=== PATIENT | female | born 1940 | race Caucasian/White ===

== ENCOUNTER → 2017-04-05 | Outpatient (CLI) | payer OTHER, BC ==
[~2017-04-05] MED LIST: ALEVE220 M1 PO; ALEVE220 MG PO; ATIVAN0.5 MG PO; CALCIUM 600 +1 EAC1 PO; CLARITIN10 MG PO; COLACE100 MG PO; CORGARD20 MG PO; COUMADIN 2 MG TA2 M1 PO; FERRO-TIME325 MG PO; HYDROCODON-ACE1 EAC5 PO; IMITREX 25 MG T25 M1 PO; JANTOVEN2 MG PO; NORCO 10-325 T1 EACH PO; PERCOCET 5-3251 EACH PO; REQUIP 0.25 M0.25 MG PO; SENNA-S TABLET1 EACH PO; TAMSULOSIN HCL0.4 MG PO; VISTARIL 25 MG25 M1 PO
== END ==
LOC: MRI 09:16
DX: M19.012 Primary osteoarthritis, left shoulder (principal); M65.812 Other synovitis and tenosynovitis, left shoulder

== ENCOUNTER → 2017-05-04 | Outpatient (CLI) | payer OTHER, BC | LOC: RAD 10:26 | DX: Z01.818 Encounter for other preprocedural examination (principal); I10 Essential (primary) hypertension ==

== ENCOUNTER → 2017-05-17 | Outpatient (CLI) | payer OTHER, BC | LOC: RAD 10:50 | DX: Z12.31 Encounter for screening mammogram for malignant neoplasm of breast (principal) ==

== ENCOUNTER 2017-06-16 05:31 | Inpatient (IN) | payer OTHER, BC ==
[2017-06-01 12:10] LABS: HEMATOCRIT 49.7 % (37.0-47.0); HEMOGLOBIN 16.9 gm/dL (12.0-15.0); MCH 29.1 pg (26.0-34.0); MCHC 33.9 g/dL (28.0-37.0); MCV 85.8 fL (80.0-100.0); RBC 5.79 mil/uL (4.20-5.00); RDW 14.5 % (10.5-14.5); WBC 8.8 thou/uL (4.0-11.0)
[2017-06-01 12:12] LABS: URINE BILIRUBIN NEGATIVE (Negative); URINE BLOOD NEGATIVE (Negative); URINE COLOR YELLOW; URINE GLUCOSE-RANDOM* NEGATIVE (Negative); URINE KETONES NEGATIVE (Negative); URINE LEUKOCYTES-REFLEX 1+ (Negative); URINE PROTEIN (DIPSTICK) NEGATIVE (Negative); URINE SPECIFIC GRAVITY <= 1.005 (1.003-1.035); URINE UROBILINOGEN 0.2 E.U./dl (0.2-1.0)
[2017-06-01 12:18] LABS: CALCIUM 9.7 mg/dL (8.5-10.1); CREATININE 0.8 mg/dL (0.6-1.0); POTASSIUM 4.3 mmol/L (3.5-5.1)
[2017-06-01 12:24] LABS: PROTIME 9.4 Seconds (9.3-11.4)
[2017-06-01 12:48] LABS: CASTS None Seen /LPF (None Seen); CRYSTALS None Seen /LPF (None Seen); SQUAMOUS 4-10 Moderate /LPF (0-3)
[2017-06-01 12:49] LABS: URINE RBC None Seen /HPF (0-2); URINE WBC-REFLEX 0-5 Rare /HPF (0-5)
[~2017-06-16] VITALS: Ht 165.1 cm; Wt 76.7 kg
[2017-06-16] VITALS (7 sets, daily range): BP systolic 119–168; BP diastolic 44–72
--- NOTE | ~2017-06-16 | O ---
[facility] [place] [address] OPERATIVE REPORT Name: DAMON GILL Room #: 401-I [facility] IN M.R.#: [id number] Admission: 06/16/17 Attend Phys: Ady Jay Discharge: 06/17/17 Date of : 40 Report #: [id number] THIS REPORT FOR: //name// CC: Bradley Newman DATE OF SERVICE: 06/16/2017 PREOPERATIVE DIAGNOSES: Left shoulder osteoarthritis, biceps tendinopathy. POSTOPERATIVE DIAGNOSES: Left shoulder osteoarthritis, biceps tendinopathy. PROCEDURES PERFORMED: Left total shoulder arthroplasty with open biceps tenodesis. SURGEON: Ady Newman MD. TENNIS COURT ATTENDANT: Yvette Camacho PA-C. ANESTHESIA: General with preoperative interscalene block, ultrasound guidance. FLUIDS: 1100 mL crystalloid. ESTIMATED BLOOD LOSS: Approximately 100 mL. IMPLANTS UTILIZED: [employer] Unite stem size #8; 135 degrees, size #8 proximal body; 44 x 15 eccentric humeral head and a size 40 anchor peg glenoid. DESCRIPTION OF PROCEDURE: After proper identification of the patient and operative site in preoperative holding area, the operative site was signed by myself. Prophylactic antibiotics given. The patient elected to receive an interscalene block, after reviewing the risks, benefits, alternatives and potential complications with anesthesia. After a satisfactory ultrasound cutter block, the patient was brought back to the operative suite and positioned on the beachchair. After induction of satisfactory general endotracheal anesthesia, head and neck were carefully stabilized. The patient was positioned, with the head elevated at approximately 40 degrees. Left shoulder was sterilely prepped and draped in the usual manner and a Circlefive limb positioning system was utilized throughout the entire procedure. Qualified child care assistant was utilized throughout the entire procedure to aid in patient limb positioning, visualization and retraction of soft tissues, instrument passage closure and sling application. Final skin draping was with Ioban. Anterior deltopectoral approach was planned. Skin was incised sharply. Full thickness skin flaps were developed. [facility] [address] [address] OPERATIVE REPORT Name: DAMON GILL Room #: 401-I [facility] IN M.R.#: [id number] Admission: 06/16/17 Attend Phys: Ady Jay Discharge: 06/17/17 Date of : 40 Report #: [id number] vein was identified and retracted laterally. Subdeltoid space was opened bluntly. Brown retractor was used to retract the soft tissues. At this point, the upper border of the pectoralis major was released and long head of biceps tenodesis was performed to the undersurface of the pectoralis major. The pec was subsequently repaired following the procedure. The long head of biceps tendon was followed proximally. Bicipital groove was opened. Spurring was noted within the groove as well as partial thickness tearing of the biceps tendon. Rotator interval was then opened. Anterior circumflex vessels were identified and ligated, and a lesser tuberosity osteotomy was performed to elevate the subscap. This was carefully released off the inferior humeral neck. Care was taken to identify and protect the axillary nerve throughout the entire procedure. A large inferior humeral head osteophyte was removed using a 135 degree guide. The patient's mary's igloo retroversion was approximately 25 degrees. The head was cut in this position. The rotator cuff was otherwise intact, and distal hand reaming of the canal up to a size 8 was performed. This matched the preoperative templating. The size 8, 135 degrees stem and proximal body provided the best fit. Protection plate was placed on this, and then attention was divided to the glenoid side. Humerus was retracted out of the way. The anterior capsule was carefully divided off the subscapularis. A right angle clamp was used to develop this plane and an anterior Bankart retractor was placed. The remaining biceps tendon and labrum was carefully released circumferentially. Inferior capsule was carefully released off of the glenoid, with care again taken to identify and protect the axillary nerve. After excellent exposure of the glenoid, significant degenerative changes were noted on both sides to the joint. A 40 mm glenoid trial was the best size match. With all the peripheral soft tissue removed, guide pin was inserted into the central aspect of the glenoid, using the 40 mm +0 guide. There did not appear to be any significant posterior glenoid wear. Face of the glenoid was reamed. Any remaining soft tissue was carefully debrided. Step drill was utilized. This bone was saved for the central peg. Next, the peripheral peg guide was carefully impacted into position and peripheral pegs were drilled. The posterior inferior peg was not contained and the glenoid was then thoroughly irrigated with normal saline. FloSeal was utilized to dry this. A 40 mm trial had been used prior to this and was fully seated and appeared to have excellent fit. This was then irrigated. Suctioned FloSeal was placed for hemostasis and bone graft was placed on the glenoid. After this had been performed, FloSeal was irrigated out. All the peripheral pegs and central pegs were carefully cleared. The anterior inferior and anterior superior pegs were then filled with the Tuohy syringe with bone cement. The implant was impacted into position and it was noted to have slight spongy feel. It did not completely seat. This was then removed. Bone was removed from the pegs and this was redrilled. The most medial fin was removed, and due to the patient's smaller size and glenoid vault size and stature, the glenoid was again prepared in a similar manner, cemented as previously noted. The trial had fit well and the glenoid with the most peripheral fin was then impacted into position. It was fully seated. Had nice glenoid fit and stability. Was held firmly in place, until the cement had [facility] [address] [place] [address] OPERATIVE REPORT Name: DAMON GILL Room #: 401-I [facility] IN [facility].#: [id number] Admission: 06/16/17 Attend Phys: Ady Jay Discharge: 06/17/17 Date of : 40 Report #: [id number] cured. Again was checked and had excellent stability and position. At this point, the shoulder was thoroughly irrigated with normal saline. A plastic was used to protect this and attention was divided to the humerus. A size #8 with 135 degree proximal body was utilized and a 40 x 15 head provided the best recreation of the proximal humeral anatomy. This was trialed. Had good anterior posterior stability. The trial implant was removed, and drill holes were placed in the anterior aspect of the humerus bicipital groove, around the lesser tuberosity osteotomy. Four #2 FiberWires were passed through these drill holes. The inferiormost two were wrapped around the stem, and as the stem was inserted, bone graft from the humeral head was placed around this to help replace any bone removed during reaming and canal preparation. Stem was impacted into position, fully seated and had excellent stability. The head was then carefully impacted and appeared to nicely reapproximate the humeral head anatomy. An eccentric head was utilized, with this being placed slightly more posterior and superior in orientation. The shoulder was reduced. It was irrigated with normal saline with antibiotic irrigant. The lesser tuberosity osteotomy was repaired with modified Willem-Garrett technique with four #2 FiberWires. The lateral portion of the rotator interval was closed as well. The shoulder had good external rotation to 40-45 degrees. The wound was again thoroughly irrigated with antibiotic irrigant. One gram of vancomycin powder was placed, half in this deep and then half in the subcutaneous tissues. Deltopectoral interval was closed with 0 Vicryl, 2-0 Vicryl for the subcutaneous tissues and final skin closure with a running Monocryl stitch. Dermabond was applied to seal the wound. Sterile dressing was applied. The patient placed in a sling and abduction pillow for 4 weeks postoperatively. At the time of dictation, the patient was still in the operative suite with anticipated discharge to recovery room in stable condition. <ELECTRONICALLY SIGNED> By: Ady Newman MD 06/18/17 0846 [id number] Ady Newman MD /nt
[~2017-06-16 05:31] MED LIST changes: +MOBIC7.5 MG PO; +PROBIOTIC1 EAC1 PO; +XALATAN2.5 ML OPHTHALMIC
[2017-06-17 05:00] VITALS: BP 140/64
[2017-06-17 06:17] LABS: HEMATOCRIT 35.7 % (37.0-47.0); HEMOGLOBIN 11.9 gm/dL (12.0-15.0)
[2017-06-17 06:21] LABS: POTASSIUM 3.8 mmol/L (3.5-5.1)
[2017-06-17 08:00] VITALS: BP 138/61
[2017-06-17 13:42] VITALS: BP 138/61
== END 2017-06-17 14:13 | disposition home or self-care (01) | DRG 483 ==
LOC: TBA 05:31 → 4N 05:31 → PRE 11:31 → 4N 11:45 → PRE 11:54 → ENTRNSPT 06-17 14:03 → EDTRNSPTSTS 06-17 14:05 → 4N 06-17 14:13
PROVIDERS: Orthopaedic Surgery Sports Medicine; Physician Assistant Surgical
PROC: 0LS40ZZ Reposition Left Upper Arm Tendon, Open Approach (ICD-10-PCS; principal; 2017-06-16)
PROC: 0RRK0JZ Replacement of Left Shoulder Joint with Synthetic Substitute, Open Approach (ICD-10-PCS; principal; 2017-06-16)
DX: M19.012 Primary osteoarthritis, left shoulder (principal); M75.22 Bicipital tendinitis, left shoulder; G25.81 Restless legs syndrome; I10 Essential (primary) hypertension; Z88.1 Allergy status to other antibiotic agents
CPT/HCPCS: 10790; 50010; 50101; 50172; 50386; 50417; 50697; 50733; 50935; 51751; 51771; 52138; 53000; 53078; 54118; 55435; 56521; 56524; 56525; 56526; 56530; 57095; 62110; 62900; 65060; 70005

== ENCOUNTER 2017-12-27 05:32 | Inpatient (IN) | payer OTHER, BC ==
[2017-12-13 13:00] LABS: URINE BILIRUBIN NEGATIVE (Negative); URINE BLOOD NEGATIVE (Negative); URINE CLARITY CLEAR; URINE COLOR YELLOW; URINE GLUCOSE-RANDOM* NEGATIVE (Negative); URINE KETONES NEGATIVE (Negative); URINE NITRITE-REFLEX NEGATIVE (Negative); URINE PROTEIN (DIPSTICK) NEGATIVE (Negative); URINE UROBILINOGEN 0.2 E.U./dl (0.2-1.0)
[2017-12-13 13:02] LABS: URINE LEUKOCYTES-REFLEX 3+ (Negative)
[2017-12-13 13:10] LABS: CASTS None Seen /LPF (None Seen); CRYSTALS None Seen /LPF (None Seen); SQUAMOUS 0-3 Few /LPF (0-3); URINE RBC 0-2 Rare /HPF (0-2); URINE WBC-REFLEX 6-15 Few /HPF (0-5)
[2017-12-13 13:11] LABS: BACTERIA-REFLEX 1-9 Few /HPF (None Seen)
[~2017-12-27] VITALS: Ht 165.1 cm; Wt 80.4 kg
--- NOTE | ~2017-12-27 | HC ---
[facility] [place] [address] CONSULTATION Name: DAMON GILL Room #: 408-P [facility] IN M.R.#: [id number] Admission: 12/27/17 Attend Phys: Harvey Pryor MD Discharge: Date of : 40 Report #: [id number] THIS REPORT FOR: //name// CC: Bradley Pryor CHIEF COMPLAINT: Confusion. HISTORY OF PRESENT ILLNESS: The patient is a 77-year-old female who underwent an elective left hip replacement yesterday. We have been consulted to help manage her medical issues postoperatively. She is a patient of Dr. Emil Kevin and has been followed in the office for a number of years. Today, she is somewhat hallucinating when working with the staff. She thinks she is at home and seeing objects in her kitchen that she needs to address. She is pleasant and redirectable and is working with therapy appropriately, but does seem somewhat confused as to her surroundings. PAST MEDICAL HISTORY: Osteoarthritis. She has had previous knee replacements, hypertension, restless leg syndrome. PAST SURGICAL HISTORY: As above. FAMILY HISTORY: Noncontributory. SOCIAL HISTORY: She lives at home. No chronic alcohol or tobacco use. ALLERGIES: CLINDAMYCIN, ALPHAGAN. MEDICATIONS: Nadolol, meloxicam, Ativan, Imitrex, Requip, calcium, eyedrops, acidophilus. REVIEW OF SYSTEMS: She denies headache, chest pain, shortness of breath, abdominal pain, nausea, vomiting, diarrhea, constipation, dysuria, syncope. OBJECTIVE: VITAL SIGNS: Temperature of 37, pulse 52, respirations 18, blood pressure 131/86, O2 sat 97% on room air. GENERAL: She is awake and alert, recognizes me. HEAD AND NECK: Unremarkable. LUNGS: Clear. HEART: Regular. ABDOMEN: Soft, normoactive bowel sounds. EXTREMITIES: No edema. NEUROLOGIC: Motor strength 4/5 throughout. She remembers having surgery, but does not quite seem to recognize the surroundings of the hospital. LABORATORY DATA: CBC was unremarkable. [address] [address] CONSULTATION Name: DAMON GILL Room #: 408-[facility] IN M.R.#: [id number] Admission: 12/27/17 Attend Phys: Harvey Pryor MD Discharge: Date of : 40 Report #: [id number] ASSESSMENT: 1. Metabolic encephalopathy, likely medication side effect of oxycodone. 2. Hypertension. 3. Osteoarthritis. 4. Recent left hip replacement. PLAN: I will continue her medications from home as you have. I would minimize her sedating medications and will try just hydrocodone for pain. I will follow her stay with you. It appears she is on 2 full strength aspirin for DVT prophylaxis per ortho protocol. <ELECTRONICALLY SIGNED> By: Mitch Nielsen MD 12/28/17 1035 [id number] [id number] Mitch Nielsen MD /kelechi
--- NOTE | ~2017-12-27 | O ---
[facility] [place] [address] OPERATIVE REPORT Name: DAMON GILL Room #: 408-P [facility] IN M.R.#: [id number] Admission: 12/27/17 Attend Phys: Harvey Pryor MD Discharge: Date of : 40 Report #: [id number] THIS REPORT FOR: //name// CC: Bradley Pryor DATE OF SERVICE: 12/27/2017 PREOPERATIVE DIAGNOSIS: Left hip osteoarthritis. POSTOPERATIVE DIAGNOSIS: Left hip osteoarthritis. PROCEDURE: Left total hip arthroplasty. SURGEON: Harvey Pryor MD. FRONT LOADER RESIDENTIAL DRIVER: Marjorie Jones PA-C. INDICATIONS FOR FRONT LOADER RESIDENTIAL DRIVER: Throughout the case, extensive retraction and manipulation as well as dislocation and reduction of the hip was required. This was afforded to me by my assistant teacher ANESTHESIA: General endotracheal. IMPLANTS: [employer] size 12 high offset Synergy press fit stem, size 52 R3 acetabular cup with a size 36+0 head. Two acetabular screws were placed for backup fixation. ESTIMATED BLOOD LOSS: 150 mL. COMPLICATIONS: None. SPECIMENS: None. CONDITION UPON LEAVING THE OPERATING ROOM: Stable. INDICATION FOR PROCEDURE: The patient is a 77-year-old female with severe left hip osteoarthritis. She had failed conservative treatment for this and after discussion with her, she elected for left total hip arthroplasty. DESCRIPTION OF PROCEDURE: Risks, benefits, alternatives, complications were discussed in detail with the patient including but not limited to risk of anesthesia, risk of damage to nerves, arteries, blood vessels, risk for infection, bleeding, risk for leg length discrepancy, instability and need for reoperation. Informed consent was obtained from the patient. Left hip was appropriately marked in the preoperative holding area. IV Ancef was given for [address] [address] OPERATIVE REPORT Name: DAMON GILL Room #: 408-P [facility] IN .R.#: [id number] Admission: 12/27/17 Attend Phys: Harvey Pryor MD Discharge: Date of : 40 Report #: [id number] preoperative antibiotics. She was brought to the operating room and placed in supine position on the operating room table. General endotracheal anesthesia was induced without complication. She was then placed in the right lateral decubitus position with the left hip uppermost. Left hip and lower extremity were prepped and draped in normal sterile fashion. Timeout was performed properly identifying the patient and procedure as well as instrumentation. All in the operating room were in agreement. Standard posterior approach to the hip was made with 10 blade through the skin. Dissection was taken down to the fascia with Bovie cautery. Fresh 10 blade was used to make a fascial incision and this was taken proximally and distally with curved Dave scissor. Charnley retractor was placed. Trochanteric bursa was taken down with Bovie cautery. Piriformis tendon was identified, tagged and taken down with Bovie. Short external rotators were also taken down with Bovie cautery. A fresh #10 blade was used to make a capsulotomy and capsule ends were tagged for later repair. The hip was dislocated and there was extensive osteoarthritic change of the femoral head. Femoral neck cut was made 1 cm proximal to lesser trochanter. Based on preoperative templating, femoral head was removed. Deep acetabular retractors were placed. Labrum was removed sharply. Pulvinar was removed with Bovie cautery. Acetabulum was then sequentially reamed up to a size 52, at which point, there was excellent bleeding cancellous bone. A size 52 R3 acetabular cup was placed and 2 acetabular screws were placed for backup fixation. A polyethylene liner for a size 36 head was placed. Attention was turned to the femur. This was reamed and broached up to a size 12, at which point, the size 12 broach was stable. This was trialed with a high offset neck and a 36+0 head. Hip was reduced, taken through range of motion, found to be stable, found to have equal leg lengths. Hip was dislocated. The broach was removed and final size 12 high offset press-fit stem was placed and seated. This was trialed with a 36+0 head. Hip was reduced, taken through range of motion, found to be stable, found to have equal leg lengths. Hip was dislocated one more time and a final size 36+0 cobalt chrome head was placed. Hip was reduced, taken through range of motion, found to be stable, found to have equal leg lengths. Wound was thoroughly irrigated with normal saline. Periarticular injection consisting of morphine, ropivacaine, epinephrine and Toradol was placed around the hip joint. A gram of vancomycin was placed deep in the hip joint. The capsule and piriformis were repaired with 0 FiberWire. Fascia was closed with 0 Vicryl, skin was closed with 2-0 Vicryl, 3-0 Monocryl. Dermabond and a BILL dressing was applied. The patient tolerated this procedure well and went to the recovery room under the care of anesthesia postoperatively. <ELECTRONICALLY SIGNED> By: Harvey Pryor MD 12/28/17 1610 1446 1457 Harvey Pryor MD /nt
[~2017-12-27 05:32] MED LIST changes: +ALPHAGAN P5 ML OPHTHALMIC
[2017-12-27 12:25] VITALS: BP 114/46
[2017-12-27 18:18] VITALS: BP 146/59
[2017-12-27 20:25] VITALS: BP 130/59
[2017-12-28 00:08] VITALS: BP 120/62
[2017-12-28 05:15] VITALS: BP 123/57
[2017-12-28 05:56] LABS: HEMATOCRIT 39.2 % (37.0-47.0); HEMOGLOBIN 13.1 gm/dL (12.0-15.0); MCH 28.1 pg (26.0-34.0); MCHC 33.5 g/dL (28.0-37.0); MCV 83.7 fL (80.0-100.0); RBC 4.68 mil/uL (4.20-5.00); RDW 14.9 % (10.5-14.5); WBC 9.6 thou/uL (4.0-11.0)
[2017-12-28 08:01] VITALS: BP 131/86
[2017-12-28 16:00] VITALS: BP 179/88
[2017-12-28 16:24] LABS: URINE BILIRUBIN NEGATIVE (Negative); URINE BLOOD TRACE (Negative); URINE CLARITY CLEAR; URINE COLOR YELLOW; URINE GLUCOSE-RANDOM* NEGATIVE (Negative); URINE KETONES NEGATIVE (Negative); URINE LEUKOCYTES-REFLEX NEGATIVE (Negative); URINE NITRITE-REFLEX NEGATIVE (Negative); URINE PROTEIN (DIPSTICK) NEGATIVE (Negative); URINE SPECIFIC GRAVITY <= 1.005 (1.005-1.035); URINE UROBILINOGEN 0.2 E.U./dl (0.2-1.0)
[2017-12-28 17:37] LABS: CALCIUM 8.7 mg/dL (8.5-10.1); POTASSIUM 3.7 mmol/L (3.5-5.1)
[2017-12-28 20:51] VITALS: BP 144/70
[2017-12-29 03:53] VITALS: BP 149/78
[2017-12-29 06:26] LABS: HEMATOCRIT 38.2 % (37.0-47.0); HEMOGLOBIN 12.9 gm/dL (12.0-15.0); MCH 28.2 pg (26.0-34.0); MCHC 33.8 g/dL (28.0-37.0); MCV 83.3 fL (80.0-100.0); RBC 4.58 mil/uL (4.20-5.00); RDW 15.1 % (10.5-14.5)
[2017-12-29 06:39] LABS: CALCIUM 9.2 mg/dL (8.5-10.1); CREATININE 0.7 mg/dL (0.6-1.0); POTASSIUM 3.4 mmol/L (3.5-5.1)
[2017-12-29 08:19] VITALS: BP 168/89
[2017-12-29 19:32] VITALS: BP 134/38
[2017-12-30 05:27] VITALS: BP 147/56
[2017-12-30 06:31] LABS: HEMATOCRIT 36.3 % (37.0-47.0); MCH 27.8 pg (26.0-34.0); MCV 84.3 fL (80.0-100.0); RBC 4.3 mil/uL (4.20-5.00); RDW 14.9 % (10.5-14.5); WBC 9.9 thou/uL (4.0-11.0)
[2017-12-30 07:40] VITALS: BP 145/54
[2017-12-30 16:47] VITALS: BP 144/65
[2017-12-30 20:20] VITALS: BP 141/61
[2017-12-31 04:34] VITALS: BP 131/51
[2017-12-31 08:09] VITALS: BP 131/75
[2017-12-31] MEDS ORDERED: TRI-BUFFERED A325 M1 PO (08:21)
[2017-12-31] MEDS ORDERED: HYDROCODON-ACE1 EAC7 PO (08:21)
[2017-12-31 15:07] VITALS: BP 131/75
== END 2017-12-31 16:37 | disposition home health service (06) | DRG 469 ==
LOC: TBA 05:32 → 4N 05:32 → PRE 05:33 → 4N 16:28 → ENTRNSPT 12-31 16:31 → 4N 12-31 16:37
PROVIDERS: Internal Medicine Geriatric Medicine; Orthopaedic Surgery; Physician Assistant Surgical
PROC: 0SRB02A Replacement of Left Hip Joint with Metal on Polyethylene Synthetic Substitute, Uncemented, Open Approach (ICD-10-PCS; principal; 2017-12-27)
DX: M16.12 Unilateral primary osteoarthritis, left hip (principal); G93.41 Metabolic encephalopathy; I10 Essential (primary) hypertension; G25.81 Restless legs syndrome; Z88.1 Allergy status to other antibiotic agents; Z88.8 Allergy status to other drugs, medicaments and biological substances
CPT/HCPCS: 10790; 50010; 50101; 50382; 50414; 51771; 53000; 53078; 53367; 54118; 56524; 56527; 56528; 56530; 57095; 62110; 62900; 70005

== ENCOUNTER 2018-09-09 16:01 | Emergency (ER) | payer OTHER, BC ==
[~2018-09-09] VITALS: Ht 165.1 cm; Wt 77.1 kg
[~2018-09-09 16:01] MED LIST changes: +HYDROCODON-ACE1 EAC7 PO; +TRI-BUFFERED A325 M1 PO
[2018-09-09] MEDS ORDERED: SENNA8.6 MG PO (17:17)
[2018-09-09] MEDS ORDERED: NORCO 5-325 TA1 EACH PO (17:17)
[2018-09-09 17:26] VITALS: BP 127/66
== END 2018-09-09 17:27 | disposition home or self-care (01) ==
LOC: ER 16:01
PROC: 0RSXXZZ Reposition Left Finger Phalangeal Joint, External Approach (ICD-10-PCS; principal; 2018-09-09)
DX: S63.285A Dislocation of proximal interphalangeal joint of left ring finger, initial encounter (principal); I10 Essential (primary) hypertension; F41.9 Anxiety disorder, unspecified; G25.81 Restless legs syndrome; G43.909 Migraine, unspecified, not intractable, without status migrainosus; Z90.89 Acquired absence of other organs; Z90.721 Acquired absence of ovaries, unilateral; Z90.710 Acquired absence of both cervix and uterus; Z96.653 Presence of artificial knee joint, bilateral; Z96.612 Presence of left artificial shoulder joint; Z91.018 Allergy to other foods; Z88.1 Allergy status to other antibiotic agents; Z88.8 Allergy status to other drugs, medicaments and biological substances; W18.49XA Other slipping, tripping and stumbling without falling, initial encounter; Y93.89 Activity, other specified; Y92.000 Kitchen of unspecified non-institutional (private) residence as the place of occurrence of the external cause; Y99.8 Other external cause status

== ENCOUNTER → 2018-11-24 | Outpatient (CLI) | payer OTHER, BC ==
[~2018-11-24] MED LIST changes: +NORCO 5-325 TA1 EACH PO; +SENNA8.6 MG PO
== END ==
LOC: CAT 11:55
DX: M19.011 Primary osteoarthritis, right shoulder (principal); M62.58 Muscle wasting and atrophy, not elsewhere classified, other site; M25.411 Effusion, right shoulder; I10 Essential (primary) hypertension

== ENCOUNTER 2019-01-25 05:39 | Inpatient (IN) | payer OTHER, BC ==
[2019-01-16 13:16] LABS: HEMATOCRIT 46.5 % (37.0-47.0); HEMOGLOBIN 15.9 gm/dL (12.0-15.0); MCH 28.4 pg (26.0-34.0); MCHC 34.2 g/dL (28.0-37.0); MCV 83.2 fL (80.0-100.0); RBC 5.59 mil/uL (4.20-5.00); RDW 15.2 % (10.5-14.5); URINE BILIRUBIN NEGATIVE (Negative); URINE BLOOD NEGATIVE (Negative); URINE CLARITY CLEAR; URINE COLOR YELLOW; URINE GLUCOSE-RANDOM* NEGATIVE (Negative); URINE KETONES NEGATIVE (Negative); URINE LEUKOCYTES-REFLEX 1+ (Negative); URINE NITRITE-REFLEX NEGATIVE (Negative); URINE PROTEIN (DIPSTICK) NEGATIVE (Negative); URINE UROBILINOGEN 0.2 E.U./dl (0.2-1.0); WBC 7.7 thou/uL (4.0-11.0)
[2019-01-16 13:23] LABS: BACTERIA-REFLEX None Seen /HPF (None Seen); CASTS None Seen /LPF (None Seen); CRYSTALS None Seen /LPF (None Seen); SQUAMOUS 4-10 Moderate /LPF (0-3); URINE RBC 0-2 Rare /HPF (0-2); URINE WBC-REFLEX 6-15 Few /HPF (0-5)
[2019-01-16 13:24] LABS: CALCIUM 9.7 mg/dL (8.5-10.1); CREATININE 0.8 mg/dL (0.6-1.0); POTASSIUM 4.2 mmol/L (3.5-5.1)
[2019-01-16 13:27] LABS: PROTIME 9.9 Seconds (9.3-11.4)
--- NOTE | 2019-01-17 16:37 | EKG ---
[place] [address] [facility] [place] [address] ELECTROCARDIOGRAM REPORT Name: GILLDAMON [id number] ������������������ Admission: ������������������ Attend Phys: Ady Jay Discharge: ������������������ Date of : 40 Report #: [id number] ����������������������������������������������������������������� [id number] THIS REPORT FOR: //name// [facility] Test Date: 2019-01-16 Test Time: 13:19:49 Pat Name: DAMON GILL Department: Room: Gender: F Exercise Physiologist: dewayne : 1940 Requested By: Ady Newman Order Number: [id number] MD: Marvin Millard Measurements Intervals Greene Rate: 61 P: 30 AR: 194 QRS: 7 QRSD: 81 T: 43 QT: 407 QTc: 410 Interpretive Statements Sinus rhythm Abnormal R-wave progression, early transition No previous ECG available for comparison Electronically Signed On 01-17-2019 16:37:17 CDT by Marvin Millard [email or web address] ��������������������������������������������� <ELECTRONICALLY SIGNED> ���������������������������������������� By: Marvin Millard MD, [facility] ��������������������������������������������� 01/17/19 1637 1319 1319 Marvin Millard MD, FACC /EPI
[~2019-01-25] VITALS: Ht 165.1 cm; Wt 80.7 kg
--- NOTE | ~2019-01-25 | O ---
[facility] [place] [address] OPERATIVE REPORT Name: DAMON GILL Room #: 150-5 ADM IN M.R.#: [id number] Admission: 01/25/19 ������������������ Attend Phys: Ady Jay Discharge: ������������������ Date of : 40 Report #: [id number] THIS REPORT FOR: //name// CC: Bradley Newman DATE OF SERVICE: 01/25/2019 PREOPERATIVE DIAGNOSES: Right shoulder pain, osteoarthritis, biceps tendinopathy and tear. POSTOPERATIVE DIAGNOSES: Right shoulder pain, osteoarthritis, biceps tendinopathy and tear. PROCEDURE PERFORMED: Right total shoulder arthroplasty with open biceps tenodesis. SURGEON: Ady Newman M.D. AXLE INSPECTOR: Yvette Long PA-C. ANESTHESIA: General with preoperative ultrasound-guided interscalene block. FLUIDS: 900 mL crystalloid. ESTIMATED BLOOD LOSS: Approximately 25 mL. IMPLANTS UTILIZED: DePuy Global Unite size 8 stem, 135-degree size 8 proximal body with a 44 x 15 eccentric humeral head and a size 40 anchor peg glenoid. DESCRIPTION OF PROCEDURE: After proper identification of the patient and operative site in preoperative holding area, the operative site was signed by myself. Prophylactic antibiotics given. The patient elected to receive an ultrasound-guided block after reviewing the risks, benefits, alternatives and potential complications with anesthesia. After a satisfactory block, the patient was brought back to the operative suite. After induction of satisfactory general endotracheal anesthesia, right shoulder was examined. It was stable throughout a full arc of motion comparable to the preoperative assessment. Glenohumeral joint crepitus consistent with her arthrosis was noted. She was carefully positioned with head of bed elevated approximately 40 degrees. Head and neck were carefully positioned. Right shoulder was sterilely prepped and draped in usual manner and final skin draping was with Ioban. Anterior deltopectoral approach was planned. A [employer] limb positioning system was utilized throughout the entire procedure. Skin was incised sharply. Full thickness skin flaps were developed. Deltopectoral interval was identified. Cephalic vein was retracted laterally. Subdeltoid space was [facility] [address] [place] [address] OPERATIVE REPORT Name: DAMON GILL Room #: 150-5 [facility] IN M.R.#: [id number] Admission: 01/25/19 ������������������ Attend Phys: Ady Jay Discharge: ������������������ Date of : 40 Report #: [id number] carefully opened. A [place]ios deltoid retractor was used to retract the soft tissues. Pronounced tenosynovitis of the biceps tendon sheath was noted. Upper border of the pectoralis major was released for approximately a centimeter and subsequently repaired at the end of the procedure. Biceps tenodesis of the long head was performed to the undersurface of the pectoralis major using #2 FiberWire. Free end of the tendon was followed proximally. Bicipital groove was opened as well as the rotator interval. Anterior circumflex vessels were identified, ligated and cauterized. A lesser tuberosity osteotomy was performed with a thin flexible osteotome. A large humeral head osteophyte was noted. This was carefully removed with a rongeur. Pronounced glenohumeral joint arthrosis and intra-articular synovitis was appreciated. Humeral head osteotomy was performed at approximately 135 degrees using cutting guide and 20 degrees of retroversion, which appeared to match her [place] retroversion. Rotator cuff was otherwise intact. Humerus was dilated up to a size 8 stem, which matched her opposite side. This did not appear to be able to accommodate the size 10 stem, which the patient was on the borderline with her preoperative templating. Size 8 trial was inserted. It was well seated. Protection plate was applied. At this point, the capsule was released off the subscapularis. The axillary nerve had been identified and protected throughout the entire procedure. Inferior capsule was carefully released off the glenoid and the labrum was excised circumferentially. Glenoid was sized to a 40. A guidepin was placed within the center of the glenoid, advanced. It was well positioned. Glenoid face was reamed. Any remaining soft tissue was carefully debrided. Step drill was utilized and the multi peg guide was carefully impacted into position. Peripheral pegs were drilled. The anterior-inferior peg was not contained and it was not cemented. The remaining pegs were all contained. Joint was thoroughly irrigated with normal saline. Trial was placed. It was well seated, stable and fully covered the glenoid. The patient could not accommodate anything larger than a 40 and this matched her opposite side. At this point, this was thoroughly irrigated with antibiotic irrigant. FloSeal was utilized in the holes to obtain hemostasis while the implant was bone grafted. Cement was prepared on the back table. The peg holes were then irrigated and dried with cautery. Peripheral superior and posterior inferior pegs were then injected with the Tuohy syringe with cement and the remaining 2 were left intact. At this point, the bone grafted glenoid was carefully impacted into position. It was well seated, nicely reduced, held firmly in place until the cement had cured. It was stable. Plastic dura was placed on this. Humerus was rotated into the wound. A 44 x 15 eccentric head provided best overall fit and recreation of the proximal humeral anatomy, had approximately 50% translation with head reduced posteriorly and nicely recreated the proximal humeral anatomy. This was removed. Trial implants were removed. [employer] Unite osteotome was carefully impacted. Four #2 FiberWires were placed in the anterior aspect of the humerus and the inferior 2 sutures were wrapped around the Global Unite prosthesis after it had been prepared on the back table. It was carefully impacted into position. It was fully seated. The head was applied and impacted. It had a satisfactory recreation of the proximal humeral anatomy. [address] [address] OPERATIVE REPORT Name: DAMON GILL Room #: 150-5 ADM IN Nii.#: [id number] Admission: 01/25/19 ������������������ Attend Phys: Ady Jay Discharge: ������������������ Date of : 40 Report #: [id number] Joint was reduced and a good posterior translation was noted. Subscapularis was reduced and this repaired with a modified Wlilem-Garrett technique with four #2 FiberWires and this securely reproduced the lesser tuberosity and subscapularis repair. Lateral portion of the rotator interval was closed with #2 FiberWire. Joint was thoroughly irrigated with normal saline. Pectoralis major was repaired. A 1 gram vancomycin powder was utilized, half deep, half more superficial. Deltopectoral fascia was closed with 0 Vicryl, 2-0 Vicryl for the subcutaneous tissues. Final skin closure with a running 4-0 Monocryl. Dermabond was applied. Sterile compressive dressing and the patient was placed in a sling and abduction pillow for 4 weeks postoperatively. Qualified assistant teacher primary was utilized throughout the entire procedure to aid in the patient limb positioning, visualization with the arthroscope instrument, suture passage as well as closure and sling application. ��������������������������������������������� ���������������������������������������� By: ��������������������������������������������� [id number] Ady Newman MD /nt
[~2019-01-25 05:39] MED LIST changes: +CALCIUM CITRAT1 EAC7 PO; +MOBIC15 MG PO; +REQUIP 1 MG TABL1 M1 PO; +REQUIP0.5 MG PO
[2019-01-25 10:30] VITALS: BP 145/63
--- NOTE | 2019-01-25 17:10 | NUR ---
ASSESSMENT-PT LIVES AT HOME WITH HER WHO IS IN GOOD HEALTH AND ABLE TO ASSIST HER AT HOME. THEY HAVE 13 STEPS WITH A RAIL TO ENTER HOME THEN BATHROOM/BEDROOM ON Main level, laundry in the basement down 13 steps with 2 rails. pt uses no dme. she has a cleaning person every other week. she has cooked up a lot of frozen meals. they have 2 dtrs in the area. pt has not been driving the last 2 months due to her shoulder. PT HAS HAD HH IN THE PAST BUT CANNOT REMEMBER THE NAME OF THE AGENCY. SPOUSE DRIVES. PT SAYS SHE BOUGHT A NEW ELECTRIC RECLINER TO SLEEP IN. PT VOICES NO CONCERNS RELATED TO DC.
--- NOTE | 2019-01-25 17:50 | NUR ---
78 YO FEMALE ADMITTED FROM PACU TO 423. A&OX4, DRSG TO R EDGAR WITH LUDWIG RENTERIAG C/D/I WITH POLAR PACK ATTACHED. PT DENIES PAIN, R ARM IS NUMB. PT HAS VOIDED AT THIS TIME. IV FLUIDS STARTED WILL CONT POC.
[2019-01-25 20:55] VITALS: BP 125/44
[2019-01-26] VITALS: BP 126/47
--- NOTE | 2019-01-26 02:47 | NUR ---
ASSUMED CARE AT 1900, ASSESSMENT COMPLETED. PT DENIED PAIN IN RIGHT SHOULDER, REPORTS STILL NUMB FROM NERVE BLOCK; HAS STRONG RADIAL PULSE, BRISK CAP REFILL, AND WARM FINGERS; AFTER A FEW HOURS, PT COULD FOCUS ON MOVING HER FINGERTIPS, BUT STILL REPORTS NUMBNESS. DENIES NAUSEA OR SOB. REQUIRES MINIMAL ASSISTANCE TO GET UP TO BSC, SLIGHTLY OFF-BALANCE WITH SHOULDER IMMOBILIZER. REPORTED NEEDING TO URINATE MULTIPLE TIMES, NEEDING TO SIT ON BSC FOR LONG PERIODS, AND BLADDER FEELING FULL. AFTER URINATING, BLADDER SCAN STILL SHOWED >600 ML; STRAIGHT CATHED PT AND GOT 750 ML OUT. IV FLUIDS INFUSING, SCD'S IN PLACE. NO OTHER CONCERNS, WILL CONTINUE TO MONITOR.
[2019-01-26 04:10] VITALS: BP 127/53
[2019-01-26 05:11] LABS: HEMATOCRIT 43.9 % (37.0-47.0); HEMOGLOBIN 14.7 gm/dL (12.0-15.0)
[2019-01-26 05:21] LABS: POTASSIUM 3.9 mmol/L (3.5-5.1)
[2019-01-26 08:47] VITALS: BP 129/44
--- NOTE | 2019-01-26 11:30 | NUR ---
PT ASSESSED AT START OF SHIFT. NUMBNESS WORE OFF AND PAIN STARTING IN -MED GIVEN. CIRC/SENS GOOD TO FINGERS. IMMOBILIZER IN PLACE. PT AMBULATING W/ STANDBY ASSIST. REPORT GIVEN TO ONCOMING RN AT THIS TIME.
[2019-01-26 13:44] VITALS: BP 129/44
--- NOTE | 2019-01-26 14:52 | NUR ---
DC ORDERES RECEIVED. DC INSTRUCTIONS, F/U APPOINT. AND SCRIPT REVIEWED WITH PT. IV REMOVED FROM R FA. PT WHEELED TO MAIN ENTRANCE.
== END 2019-01-26 15:51 | disposition home or self-care (01) | DRG 483 ==
LOC: 4E 05:39 → TBA 05:39 → PRE 05:59 → 4E 16:10 → ENTRNSPT 01-26 14:36 → EDTRNSPTSTS 01-26 14:41 → 4E 01-26 15:51
PROVIDERS: Physician Assistant Surgical; ADMIT Orthopaedic Surgery Sports Medicine
PROC: 0LS30ZZ Reposition Right Upper Arm Tendon, Open Approach (ICD-10-PCS; principal; 2019-01-25)
PROC: 0RRJ0JZ Replacement of Right Shoulder Joint with Synthetic Substitute, Open Approach (ICD-10-PCS; principal; 2019-01-25)
DX: M19.011 Primary osteoarthritis, right shoulder (principal); M75.21 Bicipital tendinitis, right shoulder; Z79.899 Other long term (current) drug therapy; Z88.1 Allergy status to other antibiotic agents; Z88.8 Allergy status to other drugs, medicaments and biological substances
CPT/HCPCS: 10783; 50010; 50101; 50172; 50386; 50417; 50697; 50733; 50935; 51320; 51751; 52001; 52138; 52282; 53000; 53078; 54118; 55430; 56521; 56524; 56525; 56526; 56530; 57095; 57103; 62110; 62900; 64039; 70005

== ENCOUNTER → 2019-06-21 | Outpatient (CLI) | payer OTHER, BC | LOC: RAD 01:41 | DX: Z12.31 Encounter for screening mammogram for malignant neoplasm of breast (principal) ==

== ENCOUNTER → 2020-07-18 | Outpatient (CLI) | payer OTHER, BC | LOC: BC 09:46 | PROVIDERS: ATTEND Obstetrics & Gynecology | DX: Z12.31 Encounter for screening mammogram for malignant neoplasm of breast (principal) ==

== ENCOUNTER → 2020-11-07 | Outpatient (CLI) | payer OTHER, BC | LOC: SJCVCIMAG 09:49 | PROVIDERS: ATTEND Internal Medicine | DX: Z01.810 Encounter for preprocedural cardiovascular examination (principal); I10 Essential (primary) hypertension; E78.5 Hyperlipidemia, unspecified; Z79.899 Other long term (current) drug therapy ==

== ENCOUNTER → 2021-07-24 | Outpatient (CLI) | payer OTHER, BC | LOC: BC 10:51 | PROVIDERS: ATTEND Obstetrics & Gynecology | DX: Z12.31 Encounter for screening mammogram for malignant neoplasm of breast (principal) ==